=== PATIENT | female | born 1935 | race Caucasian/White ===

== ENCOUNTER 2024-04-27 19:22 | Emergency (ER) | payer MEDICARE, OTHER ==
--- NOTE | 2024-04-27 19:37 | ERPHSYRPT ---
- History of Present Illness Time Seen by Provider: 04/27/24 19:37 Historian: patient Exam Limitations: no limitations Physician History: The patient, with diabetes, presents with gastrointestinal symptoms including diarrhea and vomiting. He is accompanied by his spouse. Gastrointestinal symptoms began at 2 AM today, characterized by diarrhea and vomiting. He suspects food poisoning as the cause, as he and two others who ate dinner together last night all became ill at the same time. He has been unable to keep fluids down consistently, although he was able to earlier in the day. No abdominal pain, chest pain, or difficulty breathing. No burning sensation during urination. He describes the symptoms as affecting many people in the area. He has diabetes and monitors his blood sugar levels nightly, usually around 100 mg/dL. He acknowledges that the holiday season has affected his readings. He has been consuming catarina bree, which he recognizes contains sugar, potentially impacting his blood sugar levels. Timing/Duration: today Activities at Onset: rest Quality: cramping Abdominal Pain Onset Location: generalized abdomen Pain Radiation: no radiation Severity of Pain-Max: mild Severity of Pain-Current: none Modifying Factors: Worsens With: eating, vomiting Associated Symptoms: diarrhea, loss of appetite, nausea, vomiting, No back, No chest pain, No diaphoresis, No fever/chills, No headache, No neck pain Previous symptoms: no prior history Allergies/Adverse Reactions: cyclobenzaprine [From Flexeril] Allergy (Verified 04/27/24 19:33) Anaphylactic Reaction nirmatrelvir [From Paxlovid] Allergy (Verified 04/27/24 19:33) Blisters ritonavir [From Paxlovid] Allergy (Verified 04/27/24 19:33) Blisters - Review of Systems All Other Systems: Reviewed and Negative - Nursing Vital Signs Nursing Vital Signs: Initial Vital Signs Temperature 96 F 04/27/24 19:36 Pulse Rate 104 H 04/27/24 19:36 Respiratory Rate 18 04/27/24 19:36 Blood Pressure 149/68 04/27/24 19:36 O2 Sat by Pulse Oximetry 95 04/27/24 19:36 Pain Scale Pain Intensity 0 - Physical Exam General Appearance: no apparent distress Eye Exam: eyes nml inspection Neck Exam: normal inspection, non-tender, supple, full range of motion Gastrointestinal/Abdomen Exam: soft, normal bowel sounds, No tenderness, No distention, No mass, No guarding, No rebound Neurologic Exam: alert, oriented x 3, cooperative Skin Exam: warm, dry, pale SpO2 Interpretation: normal O2 Delivery: Room Air - Course Nursing assessment & vital signs reviewed: Yes Ordered Tests: Active Orders 24 hr Category Date Time Status IV Insertion STAT Care 04/27/24 19:37 Active CBC W DIFF Stat Lab 04/27/24 19:40 Completed CMP Stat Lab 04/27/24 19:40 Completed LIPASE Stat Lab 04/27/24 19:40 Completed POCT GLUCOSE Stat Lab 04/27/24 21:30 Completed UA W/RFX UR CULTURE Stat Lab 04/27/24 19:37 Ordered Medication Summary Discontinued Medications Generic Name Dose Route Start Last Admin Trade Name Freq PRN Reason Stop Dose Admin Sodium Chloride 1,000 mls @ 999 mls/hr 04/27/24 19:37 04/27/24 20:37 Sodium Chloride 0.9% 1000 Ml IV 04/27/24 20:37 999 mls/hr .Q1H1M STA Administration Sodium Chloride Confirm 04/27/24 19:45 Sodium Chloride 0.9% 1000 Ml Administered 04/27/24 19:46 Dose 1,000 mls @ ud .ROUTE .STK-MED ONE Sodium Chloride 1,000 mls @ 999 mls/hr 04/27/24 20:30 04/27/24 20:38 Sodium Chloride 0.9% 1000 Ml IV 04/27/24 21:30 999 mls/hr .Q1H1M STA Administration Sodium Chloride Confirm 04/27/24 20:36 Sodium Chloride 0.9% 1000 Ml Administered 04/27/24 20:37 Dose 1,000 mls @ ud .ROUTE .STK-MED ONE Insulin Human Lispro 8 unit 04/27/24 20:31 04/27/24 20:36 Insulin Lispro 1 Unit SQ 04/27/24 20:32 8 unit STAT ONE Administration Insulin Human Lispro Confirm 04/27/24 20:35 Insulin Lispro 1 Unit Administered 04/27/24 20:36 Dose 8 unit .ROUTE .STK-MED ONE Ondansetron HCl 4 mg 04/27/24 19:37 04/27/24 19:48 Ondansetron Hcl 4 Mg/2 Ml Vial IV 04/27/24 19:38 4 mg STAT ONE Administration Ondansetron HCl Confirm 04/27/24 19:45 Ondansetron Hcl 4 Mg/2 Ml Vial Administered 04/27/24 19:46 Dose 4 mg .ROUTE .STK-MED ONE Lab/Rad Data: Laboratory Result Diagrams 04/27/24 19:40 04/27/24 19:40 Laboratory Results 04/27/24 04/27/24 04/27/24 Range/Units 21:30 19:45 19:40 WBC (3.98-10.04) x10^3/uL RBC (3.93-5.22) x10^6/uL Hgb (11.2-15.7) g/dL Hct (34.1-44.9) % MCV (79.4-94.8) fL MCH (25.6-32.2) pg MCHC (32.2-35.5) g/dL RDW (11.7-14.4) % Plt Count (182-369) x10^3/uL MPV (9.4-12.3) fL Gran % (34.0-71.1) % Immature Gran % (Auto) (0.001-0.429) % Nucleat RBC Rel Count (0.00-0.2) % Eos # (Auto) (0.04-0.36) x10^3/uL Immature Gran # (Auto) (0.001-0.031) x10^3u/L Absolute Lymphs (auto) (1.18-3.74) x10^3/uL Absolute Monos (auto) (0.24-0.86) x10^3/uL Absolute Nucleated RBC (0.00-0.012) x10^3u/L Lymphocytes % (19.3-51.7) % Monocytes % (4.7-12.5) % Eosinophils % (0.7-5.8) % Basophils % (0.1-1.2) % Absolute Granulocytes (1.56-6.13) x10^3/uL Basophils # (0.01-0.08) x10^3/uL Sodium (135-145) mmol/L Potassium (3.5-5.1) mmol/L Chloride (98-107) mmol/L Carbon Dioxide (22-30) mmol/L Anion Gap (5-15) MEQ/L BUN (7-17) mg/dL Creatinine (0.52-1.04) mg/dL Estimated GFR ML/MIN Glucose (74-106) mg/dL POC Glucometer 153 H (74 to 106) mg/dL Hemoglobin A1c 6.14 H (4.5-6.0) % Calcium (8.4-10.2) mg/dL Total Bilirubin (0.2-1.3) mg/dL AST (14-36) U/L ALT (0-35) U/L Alkaline Phosphatase (38-126) U/L Serum Total Protein (6.3-8.2) g/dL Albumin (3.5-5.0) g/dL Lipase (23-300) U/L Influenza Type A Ag NEGATIVE (NEGATIVE) Influenza Type B Ag NEGATIVE (NEGATIVE) RSV (PCR) NEGATIVE (NEGATIVE) SARS-CoV-2 (PCR) NEGATIVE (NEGATIVE) Slides for Path Review 04/27/24 04/27/24 Range/Units 19:40 19:40 WBC 12.1 H (3.98-10.04) x10^3/uL RBC 4.98 (3.93-5.22) x10^6/uL Hgb 14.7 (11.2-15.7) g/dL Hct 43.2 (34.1-44.9) % MCV 86.7 (79.4-94.8) fL MCH 29.5 (25.6-32.2) pg MCHC 34.0 (32.2-35.5) g/dL RDW 12.7 (11.7-14.4) % Plt Count 264 (182-369) x10^3/uL MPV 10.4 (9.4-12.3) fL Gran % 94.7 H (34.0-71.1) % Immature Gran % (Auto) 0.2 (0.001-0.429) % Nucleat RBC Rel Count 0.0 (0.00-0.2) % Eos # (Auto) 0.01 L (0.04-0.36) x10^3/uL Immature Gran # (Auto) 0.03 (0.001-0.031) x10^3u/L Absolute Lymphs (auto) 0.17 L (1.18-3.74) x10^3/uL Absolute Monos (auto) 0.41 (0.24-0.86) x10^3/uL Absolute Nucleated RBC 0.00 (0.00-0.012) x10^3u/L Lymphocytes % 1.4 L (19.3-51.7) % Monocytes % 3.4 L (4.7-12.5) % Eosinophils % 0.1 L (0.7-5.8) % Basophils % 0.2 (0.1-1.2) % Absolute Granulocytes 11.46 H (1.56-6.13) x10^3/uL Basophils # 0.02 (0.01-0.08) x10^3/uL Sodium 130 L (135-145) mmol/L Potassium 3.9 (3.5-5.1) mmol/L Chloride 97 L (98-107) mmol/L Carbon Dioxide 20 L (22-30) mmol/L Anion Gap 16.7 H (5-15) MEQ/L BUN 38 H (7-17) mg/dL Creatinine 1.02 (0.52-1.04) mg/dL Estimated GFR 52.9 ML/MIN Glucose 227 H (74-106) mg/dL POC Glucometer (74 to 106) mg/dL Hemoglobin A1c (4.5-6.0) % Calcium 9.0 (8.4-10.2) mg/dL Total Bilirubin 0.60 (0.2-1.3) mg/dL AST 34 (14-36) U/L ALT 26 (0-35) U/L Alkaline Phosphatase 65 (38-126) U/L Serum Total Protein 7.5 (6.3-8.2) g/dL Albumin 4.4 (3.5-5.0) g/dL Lipase 35 (23-300) U/L Influenza Type A Ag (NEGATIVE) Influenza Type B Ag (NEGATIVE) RSV (PCR) (NEGATIVE) SARS-CoV-2 (PCR) (NEGATIVE) Slides for Path Review YES - Progress Progress: improved Progress Note: Acute Gastroenteritis (suspected Norovirus) Symptoms of nausea, vomiting, and diarrhea began at 2 AM after a shared meal with two others who also became ill. Suspected [facility] infection [facility], though food poisoning was considered. Dehydration confirmed by lab results, despite normal electrolytes. Positive response to Zofran for nausea. - Administer two liters of IV fluids for dehydration. - Continue Zofran for nausea management. - Discharge with a prescription for Zofran. Diabetes Mellitus Diabetes mellitus with typical blood sugar levels around 100 mg/dL. Recent labs show elevated blood sugar, likely due to vomiting and consumption of sugary drinks during illness. - Monitor blood sugar levels regularly. - Glucose 227 today, 8u of insulin lispro given SC Counseled pt/family regarding: lab results, diagnosis Medical Desision Making - Diagnostic Testing Diagnostic test were ordered, analyzed, and reviewed by me: Yes Radiological Interpretation: Interpreted by me - Risk of complications The pt has a mod risk of morbidity or mortality based on: Need for prescription drug management - Departure Departure Disposition: Home Clinical Impression: Vomiting and diarrhea, Hyperglycemia due to type 2 diabetes mellitus Condition: Good Critical Care Time: No Referrals: MARLON VIERA MD [Primary Care Provider] - Follow up/PCP as directed Instructions: Viral gastroenteritis in adults, [place] diet Prescriptions: ondansetron HCL [Ondansetron HCl] 8 mg PO TID PRN 7 Days #21 tablet PRN Reason: Nausea/Vomiting
[2024-04-27] MEDS ORDERED: Zofran 4 MG/2 ML VIAL ONE (19:45)
[2024-04-27] MEDS ORDERED: Sodium Chloride 0.9% 1000 ML 1,000 ML ONE ×2 (19:45→20:36)
[2024-04-27] MEDS: Sodium Chloride 0.9% 1000 ML 1,000 ML IV STA ×2 (19:48→20:38)
[2024-04-27] MEDS: Zofran 4 MG/2 ML VIAL IV ONE (19:48)
[2024-04-27 19:49] VITALS: RESP 18; TEMP 96
[2024-04-27 19:49] LABS: Absolute Neutrophil Ct (ANC) 11.46 x10^3/uL (1.56-6.13); BASOPHIL % 0.2 % (0.1-1.2); Basophil (Absolute #) 0.02 x10^3/uL (0.01-0.08); Eosinophil % 0.1 % (0.7-5.8); Eosinophil (Absolute #) 0.01 x10^3/uL (0.04-0.36); Hematocrit 43.2 % (34.1-44.9); Hemoglobin 14.7 g/dL (11.2-15.7); IMMATURE GRAN # 0.03 x10^3u/L (0.001-0.031); IMMATURE GRAN % 0.2 % (0.001-0.429); Lymphocyte (Absolute #) 0.17 x10^3/uL (1.18-3.74); Lymphocytes % 1.4 % (19.3-51.7); Mean Cell Volume 86.7 fL (79.4-94.8); Mean Corpuscular Hemoglobin 29.5 pg (25.6-32.2); Mean Platelet Volume 10.4 fL (9.4-12.3); Monocyte (Absolute #) 0.41 x10^3/uL (0.24-0.86); Monocytes % 3.4 % (4.7-12.5); Neutrophil % 94.7 % (34.0-71.1); Platelet Count 264 x10^3/uL (182-369); Red Blood Count 4.98 x10^6/uL (3.93-5.22); Red Cell Distribution Width 12.7 % (11.7-14.4); White Blood Count 12.1 x10^3/uL (3.98-10.04)
[2024-04-27 20:02] LABS: ALBUMIN 4.4 g/dL (3.5-5.0); ANION GAP 16.7 MEQ/L (5-15); BILIRUBIN,TOTAL 0.6 mg/dL (0.2-1.3); Creatinine 1 1.02 mg/dL (0.52-1.04); EST GLOMERULAR FILTRATION RATE 52.9 ML/MIN; Potassium 3.9 mmol/L (3.5-5.1); Total Protein 7.5 g/dL (6.3-8.2)
[2024-04-27 20:24] LABS: INFLUENZA A NEGATIVE (NEGATIVE); INFLUENZA B NEGATIVE (NEGATIVE); RESPIRATORY SYNCTIAL VIRUS NEGATIVE (NEGATIVE); SARS-CoV-2 Xpert Express NEGATIVE (NEGATIVE)
[2024-04-27] MEDS ORDERED: HUMALOG ONE (20:35)
[2024-04-27] MEDS: HUMALOG SQ ONE (20:36)
[2024-04-27 21:03] LABS: Slide Review 1 YES
[2024-04-27 21:54] VITALS: BP 134/68; PULSE 92; O2SAT 97
== END 2024-04-27 21:58 | disposition home or self-care (01) ==
LOC: ED 19:22
DX: R11.2 Nausea with vomiting, unspecified (principal); R19.7 Diarrhea, unspecified; R10.84 Generalized abdominal pain; E11.65 Type 2 diabetes mellitus with hyperglycemia
CPT/HCPCS: 0241U; 36415; 80053; 82947; 83036; 83690; 85025; 96360; 96361; 96365; 96374; 99283; 99284; J1817; J2405

== ENCOUNTER 2024-04-29 07:13 | Emergency (ER) | payer MEDICARE, OTHER ==
[2024-04-29 07:39] VITALS: TEMP 98.4
[2024-04-29] MEDS ORDERED: Sodium Chloride 0.9% 1000 ML 1,000 ML ONE (07:47)
[2024-04-29 07:48] LABS: Absolute Neutrophil Ct (ANC) 2.61 x10^3/uL (1.56-6.13); BASOPHIL % 0.2 % (0.1-1.2); Basophil (Absolute #) 0.01 x10^3/uL (0.01-0.08); Eosinophil % 1.2 % (0.7-5.8); Eosinophil (Absolute #) 0.05 x10^3/uL (0.04-0.36); Hematocrit 36.7 % (34.1-44.9); Hemoglobin 12.5 g/dL (11.2-15.7); IMMATURE GRAN # 0.01 x10^3u/L (0.001-0.031); IMMATURE GRAN % 0.2 % (0.001-0.429); Lymphocyte (Absolute #) 0.93 x10^3/uL (1.18-3.74); Lymphocytes % 21.7 % (19.3-51.7); Mean Cell Volume 85.7 fL (79.4-94.8); Mean Corpuscular Hemoglobin 29.2 pg (25.6-32.2); Mean Corpuscular Hgb Concent. 34.1 g/dL (32.2-35.5); Monocyte (Absolute #) 0.67 x10^3/uL (0.24-0.86); Monocytes % 15.7 % (4.7-12.5); Platelet Count 167 x10^3/uL (182-369); Red Blood Count 4.28 x10^6/uL (3.93-5.22); Red Cell Distribution Width 12.7 % (11.7-14.4); White Blood Count 4.3 x10^3/uL (3.98-10.04)
[2024-04-29] MEDS: Sodium Chloride 0.9% 1000 ML 1,000 ML IV STA (07:48)
[2024-04-29 07:56] LABS: Bacteria None Seen /HPF (None Seen); Bilirubin Negative (Negative); Blood Negative (Negative); Epithelial Cells Rare /HPF (None Seen); Glucose, Urine Negative (Negative); Hyaline Casts NONE SEEN /LPF (0-2); Ketones Trace (Negative); Leukocyte Esterase Trace (Negative); Nitrite Negative (Negative); Protein,Urine Dip Negative (Negative); RBC 0-2 /HPF (0-5); Urobilinogen 0.2 mg/dL (0.2); WBC 0-2 /HPF (0-5)
[2024-04-29 07:57] LABS: Appearance Clear (Clear)
--- NOTE | 2024-04-29 08:00 | ERPHSYRPT ---
- History of Present Illness Time Seen by Provider: 04/29/24 07:57 Source: patient Exam Limitations: no limitations Patient Subjective Stated Complaint: Weakness Triage Nursing Assessment: Patient ambulated back to ED and transferred self to bed. Patient A+O X 3. Patient's skin pink, warm and dry. Patient states she was dx with Norovirus on 04/27/2024. Patient reports having several episodes of black stool yesterday. Patient denies pain or discomfort. Abdomen soft and round with BS X 4. Physician History: Patient is a 89-year-old female with significant past medical history of hypertension recently seen in the emergency room 3 days ago was diagnosed with dehydration and viral gastroenteritis continue to have a diarrhea since yesterday. She took Pepto-Bismol and Lomotil since then her diarrhea has stopped but the last bowel movement was black. She denies any fresh blood in her stool or urine. She denies any fever chills nausea or vomiting. Timing/Duration: day(s) (3 days) Severity: mild Associated Symptoms: denies symptoms Allergies/Adverse Reactions: cyclobenzaprine [From Flexeril] Allergy (Verified 04/29/24 07:20) Anaphylactic Reaction nirmatrelvir [From Paxlovid] Allergy (Verified 04/29/24 07:20) Blisters ritonavir [From Paxlovid] Allergy (Verified 04/29/24 07:20) Blisters Home Medications: Alprazolam [Xanax] 0.5 tab PO HS 04/27/24 [History] Gabapentin 200 mg PO HS 04/27/24 [History] Gemfibrozil [Lopid] 600 mg PO BID 04/27/24 [History] Latanoprost 2.5 ml OP DAILY 04/27/24 [History] Levothyroxine Sodium [Synthroid] 75 mcg PO DAILY 04/27/24 [History] Lisinopril/Hydrochlorothiazide [Lisinopril-Hctz 20-25 mg Tab] 1 each PO DAILY 04/27/24 [History] Loratadine 10 mg [Claritin 10 mg] 10 mg PO DAILY 04/27/24 [History] glipiZIDE [Glipizide] 2.5 mg PO BID 04/27/24 [History] Hx Tetanus, Diphtheria Vaccination/Date Given: Yes (2015) Hx Influenza Vaccination/Date Given: Yes (2023) Hx Pneumococcal Vaccination/Date Given: Yes (2023) Immunizations Up to Date: Yes Travel Risk - International Travel Have you traveled outside of the country in past 3 weeks: No - Emerging Infectious Disease Are you exhibiting symptoms associated with any current EIDs: No Symptoms: Diarrhea, Vomitting - Review of Systems Constitutional: No Fever, No Chills Eyes: No Symptoms Ears, Nose, & Throat: No Symptoms Respiratory: No Cough, No Dyspnea Cardiac: No Chest Pain, No Edema, No Syncope Abdominal/Gastrointestinal: Diarrhea, No Abdominal Pain, No Nausea, No Vomiting Genitourinary Symptoms: No Dysuria Musculoskeletal: No Back Pain, No Neck Pain Skin: No Rash Neurological: No Dizziness, No Focal Weakness, No Sensory Changes Psychological: No Symptoms Endocrine: No Symptoms All Other Systems: Reviewed and Negative - Past Medical History Pertinent Past Medical History: Yes Neurological History: No Pertinent History ENT History: Cataracts Cardiac History: High Cholesterol, Hypertension Respiratory History: No Pertinent History Endocrine Medical History: Hypothyroidism Musculoskeletal History: No Pertinent History GI Medical History: Gallbladder Disease History: No Pertinent History Psycho-Social History: Anxiety Female Reproductive Disorders: Breast Cancer - Past Surgical History Past Surgical History: Yes Gastrointestinal: Appendectomy, Cholecystectomy Musculoskeletal: Orthopedic Surgery Female Surgical History: Hysterectomy, Mastectomy, Lumpectomy Other Surgical History: thyroidestomy rt side, double mastectomy, eye surgery, rt knee, lumpectomy left breast - Social History Smoking Status: Never smoker Exposure to second hand smoke: Yes Drug Use: none - Social Determinants of Health Will the patient participate in the screening: Yes Do you worry about a steady place to live?: No Do you have any problems with any of the following?: No known problems In the past 12 months,have you had to go without utilities?: No Transportation Issues: No Has anyone in your support network made you feel unsafe?: No Have you or anyone in your house had to go without enough: No - Nursing Vital Signs Nursing Vital Signs: Initial Vital Signs Temperature 98.4 F 04/29/24 07:20 Pulse Rate 82 04/29/24 07:20 Respiratory Rate 20 04/29/24 07:20 Blood Pressure 149/66 04/29/24 07:20 O2 Sat by Pulse Oximetry 97 04/29/24 07:20 Pain Scale Pain Intensity 0 - Physical Exam General Appearance: no apparent distress, alert Eye Exam: PERRL/EOMI, eyes nml inspection Ears, Nose, Throat Exam: normal ENT inspection, TMs normal, pharynx normal, moist mucous membranes Neck Exam: normal inspection, non-tender, supple, full range of motion Respiratory Exam: normal breath sounds, lungs clear, No respiratory distress Cardiovascular Exam: regular rate/rhythm, normal heart sounds, normal peripheral pulses Gastrointestinal/Abdomen Exam: soft, normal bowel sounds, No tenderness, No mass Back Exam: normal inspection, normal range of motion, No CVA tenderness, No vertebral tenderness Extremity Exam: normal inspection, normal range of motion, pelvis stable Neurologic Exam: alert, oriented x 3, cooperative, normal mood/affect, nml cerebellar function, nml station & gait, sensation nml, No motor deficits Skin Exam: normal color, warm, dry, No rash Lymphatic Exam: No adenopathy SpO2: 97 - Course Nursing assessment & vital signs reviewed: Yes Ordered Tests: Active Orders 24 hr Category Date Time Status AMYLASE Stat Lab 04/29/24 07:44 Completed CBC W DIFF Stat Lab 04/29/24 07:44 Completed CMP Stat Lab 04/29/24 07:44 Completed LIPASE Stat Lab 04/29/24 07:44 Completed OB-FECAL SCREEN Stat Lab 04/29/24 Ordered UA W/RFX UR CULTURE Stat Lab 04/29/24 07:46 Completed Medication Summary Discontinued Medications Generic Name Dose Route Start Last Admin Trade Name Freq PRN Reason Stop Dose Admin Sodium Chloride 1,000 mls @ 999 mls/hr 04/29/24 07:33 04/29/24 07:48 Sodium Chloride 0.9% 1000 Ml IV 04/29/24 08:33 999 mls/hr .Q1H1M STA Administration Sodium Chloride Confirm 04/29/24 07:47 Sodium Chloride 0.9% 1000 Ml Administered 04/29/24 07:48 Dose 1,000 mls @ ud .ROUTE .STK-MED ONE Lab/Rad Data: Laboratory Result Diagrams 04/29/24 07:44 04/29/24 07:44 Laboratory Results 04/29/24 04/29/24 04/29/24 Range/Units 07:46 07:44 07:44 WBC 4.3 (3.98-10.04) x10^3/uL RBC 4.28 (3.93-5.22) x10^6/uL Hgb 12.5 (11.2-15.7) g/dL Hct 36.7 (34.1-44.9) % MCV 85.7 (79.4-94.8) fL MCH 29.2 (25.6-32.2) pg MCHC 34.1 (32.2-35.5) g/dL RDW 12.7 (11.7-14.4) % Plt Count 167 L D (182-369) x10^3/uL MPV 10.0 (9.4-12.3) fL Gran % 61.0 (34.0-71.1) % Immature Gran % (Auto) 0.2 (0.001-0.429) % Nucleat RBC Rel Count 0.0 (0.00-0.2) % Eos # (Auto) 0.05 (0.04-0.36) x10^3/uL Immature Gran # (Auto) 0.01 (0.001-0.031) x10^3u/L Absolute Lymphs (auto) 0.93 L (1.18-3.74) x10^3/uL Absolute Monos (auto) 0.67 (0.24-0.86) x10^3/uL Absolute Nucleated RBC 0.00 (0.00-0.012) x10^3u/L Lymphocytes % 21.7 (19.3-51.7) % Monocytes % 15.7 H (4.7-12.5) % Eosinophils % 1.2 (0.7-5.8) % Basophils % 0.2 (0.1-1.2) % Absolute Granulocytes 2.61 (1.56-6.13) x10^3/uL Basophils # 0.01 (0.01-0.08) x10^3/uL Sodium 129 L (135-145) mmol/L Potassium 3.6 (3.5-5.1) mmol/L Chloride 97 L (98-107) mmol/L Carbon Dioxide 22 (22-30) mmol/L Anion Gap 13.2 (5-15) MEQ/L BUN 20 H (7-17) mg/dL Creatinine 0.75 (0.52-1.04) mg/dL Estimated GFR 76.5 ML/MIN Glucose 123 H (74-106) mg/dL Calcium 8.2 L (8.4-10.2) mg/dL Total Bilirubin 0.60 (0.2-1.3) mg/dL AST 43 H (14-36) U/L ALT 23 (0-35) U/L Alkaline Phosphatase 54 (38-126) U/L Serum Total Protein 6.7 (6.3-8.2) g/dL Albumin 3.8 (3.5-5.0) g/dL Amylase 48 (30-110) U/L Lipase 47 (23-300) U/L Urine Color Yellow (Yellow) Urine Appearance Clear (Clear) Urine pH 6.0 (4.6-8.0) Ur Specific [place] 1.010 (1.005-1.030) Urine Protein Negative (Negative) Urine Glucose (UA) Negative (Negative) mg/dL Urine Ketones Trace A (Negative) Urine Blood Negative (Negative) Urine Nitrite Negative (Negative) Urine Bilirubin Negative (Negative) Urine Urobilinogen 0.2 (0.2) mg/dL Ur Leukocyte Esterase Trace A (Negative) U Hyaline Cast (Auto) NONE SEEN (0-2) /LPF Urine Microscopic RBC 0-2 (0-5) /HPF Urine Microscopic WBC 0-2 (0-5) /HPF Ur Epithelial Cells Rare (None Seen) /HPF Urine Bacteria None Seen (None Seen) /HPF Urine Culture Reflexed NO (NO) - Progress Progress: improved Counseled pt/family regarding: lab results, diagnosis, need for follow-up Medical Desision Making - Diagnostic Testing Diagnostic test were ordered, analyzed, and reviewed by me: Yes - Risk of complications Minimal Risk: Minimal risk of morbidity - Departure Departure Disposition: Home Clinical Impression: Vomiting and diarrhea, Gastroenteritis due to norovirus Condition: Stable Critical Care Time: No Referrals: MARLON VIERA MD [Primary Care Provider] - Follow Up with PCP/3 days Instructions: Viral gastroenteritis in adults Additional Instructions: Discharge/Care Plan VAMSHI ALLEN was seen on 04/29/24 in the Emergency Room. The patient was counseled regarding Diagnosis,Lab results, Imaging studies, need for follow up and when to return to the Emergency Room. Prescriptions given: Discharge Note I have spoken with the patient and/or caregivers. I have explained the patient's condition, diagnosis and treatment plan based on the information available to me at this time. I have answered the patient's and/or caregiver's questions and addressed any concerns. The patient and/or caregivers have as good understanding of the patient's diagnosis, condition and treatment plan as can be expected at this point. The vital signs have been stable. The patient's condition is stable and appropriate for discharge from the emergency department. The patient will pursue further outpatient evaluation with the primary care physician or other designated or consulting physician as outlined in the discharge instructions. The patient and/or caregivers are agreeable to this plan of care and follow-up instructions have been explained in detail. The patient and/or caregivers have received these instruction. The patient/and or caregivers are aware that any significant change in condition or worsening of symptoms should prompt an immediate return to this or the closest emergency department or call 911. ALEJANDROVAMSHI was seen on 04/29/24 n the Emergency Room. At that time you were treated for an emergent condition, during your visit Laboratory, Radiology and/or other procedures may have been ordered. It is very important that you fo llow-up with your Primary Care Physician MARLON VIERA within the next 24-48 hours to review your Emergency Room visit and the final results of testing that was ordered. Some test results such as Urine Cultures, Blood Cultures, and other cultures if ordered will not be finalized for 24-48 hours. If you do not have a Primary Care Provider please call the medical records department at [phone] to obtain a copy of your results or you may sign into our patient portal to obtain these results by visiting us @ [email or web address] and completing the following steps: 1. Click on the Patient Portal link 2. Click the Patient Self Enrollment Link to complete the enrollment form and entering your 3. Once the enrollment form is completed you will receive an email with a temporary ID and password at the email address you provided. 4. Next choose a user name and password. Your user name must be at least 4 c haracters long and your password must be at least 4 characters long. 5. Choose a security question from the list and provide your answer to the question. If you already have signed into the Health Portal you may access your Health Care Information 23/11 by the following steps: 1. Login to our website @ [email or web address] 2. Enter your original user name and password. FAQS The [facility] Health Portal is an online tool that contains your Lab Results, Radiology Reports, Visit History, Discharge Instructions and Health Summary Lab and Radiology Results will not be available for 72 hours on the portal. The Portal is a secure site, passwords are encryted and URLs are re-written so they cannot be copied and pasted. You and authorized family members are the only ones who can access your Portal. Also there is a timeout feature that protects your information if you leave the Portal page open. If you have technical difficulty please use the Contact Us link on the page this will allow you to submit any questions you have regarding the Portal or you may contact the Medical Record Department at [phone] ext [phone].
[2024-04-29 08:01] LABS: ALBUMIN 3.8 g/dL (3.5-5.0); ANION GAP 13.2 MEQ/L (5-15); BILIRUBIN,TOTAL 0.6 mg/dL (0.2-1.3); Calcium 8.2 mg/dL (8.4-10.2); Creatinine 1 0.75 mg/dL (0.52-1.04); EST GLOMERULAR FILTRATION RATE 76.5 ML/MIN; Potassium 3.6 mmol/L (3.5-5.1); Total Protein 6.7 g/dL (6.3-8.2)
[2024-04-29 08:33] VITALS: O2SAT 97
[2024-04-29 08:57] VITALS: BP 158/73; PULSE 72; RESP 17
== END 2024-04-29 09:02 | disposition home or self-care (01) ==
LOC: ED 07:13
DX: K52.9 Noninfective gastroenteritis and colitis, unspecified (principal); J10.2 Influenza due to other identified influenza virus with gastrointestinal manifestations; R53.1 Weakness; R11.10 Vomiting, unspecified
CPT/HCPCS: 36415; 80053; 81001; 82150; 83690; 85025; 96360; 99283; 99284